=== PATIENT | female | born 1970 | race American Indian/Alaskan Native ===

== ENCOUNTER 2019-03-26 06:16 | Emergency (ER) | payer OTHER ==
[2019-03-26] MEDS ORDERED: HYDROmorphone 1 MG/1 ML INJ IV ONE ×5 (06:30→13:48)
--- NOTE | 2019-03-26 06:52 | Emergency Department Report ---
ED Lower Extremity HPI - General Chief Complaint: Extremity Injury, Upper Stated Complaint: LEFT HIP PAIN Time Seen by Provider: 03/26/19 06:28 Source: EMS Mode of arrival: Stretcher Limitations: Physical Limitation - History of Present Illness Initial Comments: 48-year-old female with a past medical history of kidney transplant followed at [facility] presents to Hospital complains of left hip pain after work injury. She states while at the gym 2 days ago she was using the hip abductor/abductor machine. During this she felt a pulling sensation to the left hip. Yesterday she started feeling like her leg was tight in inguinal, hip an buttock area so she started limping. Around 3 AM this morning patient woke up in pain and leg tightness and unable to ambulate. She received fentanyl 100 g and Zofran 4 mg IV. She presents complaining of 10/10 left hip pain with spasm that is worse with movement and palpation. No previous hip injury reported. - Related Data Home Medications Medication Instructions Recorded Confirmed Last Taken Mycophenolate Sodium [Myfortic] 360 mg PO BID 07/12/13 07/12/13 Unknown Tacrolimus [Prograf] 6 mg PO BID 07/12/13 07/12/13 Unknown predniSONE [Deltasone] 5 mg PO DAILY 07/12/13 07/12/13 Unknown Previous Rx's Medication Instructions Recorded Last Taken Type Ciprofloxacin HCl [Cipro] 500 mg PO BID #14 tablet 07/12/13 Unknown Rx oxyCODONE /ACETAMINOPHEN [Percocet 1 tab PO Q6HR PRN #10 tablet 07/12/13 Unknown Rx 5/325 mg] Allergies Allergy/AdvReac Type Severity Reaction Status Date / Time No Known Allergies Allergy Verified 03/26/19 07:10 ED Review of Systems ROS: Stated complaint: LEFT HIP PAIN Other details as noted in HPI Comment: All other systems reviewed and negative ED Past Medical Hx - Past Medical History Previous Medical History?: Yes Additional medical history: KIDNEY TRANSPLANT - Surgical History Past Surgical History?: Yes Additional Surgical History: kidney transplant - Social History Smoking Status: Never Smoker Substance Use Type: None - Medications Home Medications: Home Medications Medication Instructions Recorded Confirmed Last Taken Type Ciprofloxacin HCl [Cipro] 500 mg PO BID #14 tablet 07/12/13 Unknown Rx Mycophenolate Sodium [Myfortic] 360 mg PO BID 07/12/13 07/12/13 Unknown History Tacrolimus [Prograf] 6 mg PO BID 07/12/13 07/12/13 Unknown History oxyCODONE /ACETAMINOPHEN [Percocet 1 tab PO Q6HR PRN #10 tablet 07/12/13 Unknown Rx 5/325 mg] predniSONE [Deltasone] 5 mg PO DAILY 07/12/13 07/12/13 Unknown History ED Physical Exam - General Limitations: Physical Limitation - Other Other exam information: General: Distress secondary to pain Head exam: Atraumatic, normocephalic Eyes exam: Normal appearance, pupils equal reactive to light, extraocular movements intact ENT: Moist mucous membrane, normal oropharynx Neck exam: Normal inspection, full range of motion, no meningismus nontender Respiratory exam: Clear to auscultation bilateral, no wheezes, rales, crackles Cardiovascular: Normal rate and rhythm, normal heart sounds Abdomen: Soft, nondistended, and nontender, with normal bowel sounds, no rebound, or guarding Extremity: Patient would not let me move the hip and a directions secondary to pain. No shortening noted but hip is held in a slightly flexed position due to support from any pillow. 2+ DP pulse palpated. Tenderness along the lateral left inguinal ligament, left hip, left buttock/posterior hip area. + spasms to quad without quad tenderness Back: Normal Inspection, full range of motion, no tenderness Neurologic: Alert, oriented x3, cranial nerves intact, no motor or sensory deficit Psychiatric: normal affect, normal mood Skin: Warm, dry, intact ED Course Vital Signs 03/26/19 03/26/19 03/26/19 06:34 06:40 06:41 Temperature 98.6 F Pulse Rate 85 Respiratory 16 16 Rate Blood Pressure Blood Pressure 135/81 [Left] O2 Sat by Pulse 100 100 Oximetry 03/26/19 03/26/19 03/26/19 06:45 07:01 07:10 Temperature Pulse Rate Respiratory 19 Rate Blood Pressure 134/76 134/76 Blood Pressure [Left] O2 Sat by Pulse 100 100 Oximetry 03/26/19 03/26/19 03/26/19 07:15 07:30 07:45 Temperature Pulse Rate Respiratory Rate Blood Pressure 134/76 134/80 134/76 Blood Pressure [Left] O2 Sat by Pulse 100 100 100 Oximetry 01/18/20 01/18/20 01/18/20 08:01 08:15 08:31 Temperature Pulse Rate Respiratory Rate Blood Pressure 134/76 134/76 134/76 Blood Pressure [Left] O2 Sat by Pulse 100 95 99 Oximetry 03/26/19 03/26/19 03/26/19 08:45 09:00 09:15 Temperature Pulse Rate Respiratory Rate Blood Pressure 134/76 125/77 134/80 Blood Pressure [Left] O2 Sat by Pulse 99 100 100 Oximetry 03/26/19 03/26/19 03/26/19 09:31 09:45 09:47 Temperature Pulse Rate Respiratory 20 Rate Blood Pressure 134/80 134/80 Blood Pressure [Left] O2 Sat by Pulse 100 98 Oximetry 03/26/19 03/26/19 03/26/19 10:01 10:15 10:30 Temperature Pulse Rate Respiratory Rate Blood Pressure 134/80 134/80 124/72 Blood Pressure [Left] O2 Sat by Pulse 100 100 100 Oximetry 03/26/19 03/26/19 03/26/19 10:45 11:01 11:15 Temperature Pulse Rate Respiratory Rate Blood Pressure 124/72 124/72 124/72 Blood Pressure [Left] O2 Sat by Pulse 100 99 99 Oximetry 03/26/19 03/26/19 03/26/19 11:31 11:45 12:00 Temperature Pulse Rate Respiratory Rate Blood Pressure 124/72 124/72 125/78 Blood Pressure [Left] O2 Sat by Pulse 100 99 Oximetry 03/26/19 12:15 Temperature Pulse Rate Respiratory Rate Blood Pressure 125/78 Blood Pressure [Left] O2 Sat by Pulse 100 Oximetry - Consultations Consultation #1: 03/26/19 12:33 case d/w Dr Rockwell with [facility] -pt may go to [facility] if needed after d/c -will call on Thursday to provide a f/u appointment with pmd. ED Lower Extremity MDM - Radiology Data Radiology results: report reviewed PELVIS AND LEFT HIP 2 VIEWS INDICATION: left hip pain and spasm after workout injury. COMPARISON: No relevant prior imaging study available. FINDINGS: There is no acute skeletal abnormality. No significant joint space narrowing. Postsurgical changes are seen in the pelvis. SI joints and pubic symphysis are within normal limits. No soft tissue swelling. IMPRESSION: 1. No acute findings. - Medical Decision Making Patient to ED for several hours receive an Valium and Dilaudid. At time of discharge patient finally had symptomatic relief when is able to move her leg more. Patient discharged to wheelchair to car and provided crutches and pain medication. Outpatient follow-up arranged thru [facility]. - Differential Diagnosis fracture, contusion, sprain Critical Care Time: No Critical care attestation.: If time is entered above; I have spent that time in minutes in the direct care of this critically ill patient, excluding procedure time. ED Disposition Clinical Impression: Strain of left hip, Muscle spasm Disposition: TO HOME OR SELFCARE Is pt being admited?: No Does the pt Need Aspirin: No Condition: Stable Instructions: Muscle Strain (ED), Muscle Spasm (ED) Additional Instructions: Take the medication as prescribed. Follow up wit Dr Patrick as scheduled. Return is symptoms worsen as indicated by your discharge instructions. You may also follow up with the [facility]. Referrals: [facility] [Other] - 3-5 Days MD jules Patrick [Other] - 03/29/19 1:20 pm (Follow with your [facility] doctor ) Time of Disposition: 14:31
--- NOTE | 2019-03-26 07:30 | XRay Report ---
PELVIS AND LEFT HIP 2 VIEWS INDICATION: left hip pain and spasm after workout injury. COMPARISON: No relevant prior imaging study available. FINDINGS: There is no acute skeletal abnormality. No significant joint space narrowing. Postsurgical changes ar e seen in the pelvis. SI joints and pubic symphysis are within normal limits. No soft tissue swelling . IMPRESSION: 1. No acute findings. Signer Name: Christian Ayala MD Signed: 03/26/2019 7:25 AM Workstation Name: [id number]
[2019-03-26] MEDS ORDERED: diazePAM 10 MG/2 ML SYRINGE IV ONE ×3 (08:08→12:01)
[2019-03-26] MEDS: diazePAM 10 MG/2 ML SYRINGE IV ONE ×2 (08:11→08:13)
[2019-03-26 15:58] VITALS: BP 128/68
== END 2019-03-26 15:30 | disposition home or self-care (01) ==
LOC: ED 06:16
DX: S76.012A Strain of muscle, fascia and tendon of left hip, initial encounter (principal); M62.838 Other muscle spasm; Z79.899 Other long term (current) drug therapy; X58.XXXA Exposure to other specified factors, initial encounter; Y93.89 Activity, other specified; Y92.89 Other specified places as the place of occurrence of the external cause; Y99.8 Other external cause status
CPT/HCPCS: 73502; 96374; 96375; 96376; 99284; J1170; J3360